=== PATIENT | female | born 1975 ===

== ENCOUNTER 2018-06-17 16:42 | Emergency (ER) | payer SELFPAY ==
[2018-06-17 16:48] VITALS: TEMP 98.3
[2018-06-17] MEDS ORDERED: Lactated Ringer's 1,000 ML IV STA (17:33)
[2018-06-17] MEDS ORDERED: Dextrose 5%/Lactated Ringer's 1,000 ML IV ONE (17:45)
--- NOTE | 2018-06-17 18:15 | ED PDOC ---
HPI: Psych/Substance Abuse Time Seen by Provider: 06/17/18 16:50 Chief Complaint (Nursing): Psychiatric Evaluation Chief Complaint (Provider): Psychiatric Evaluation History Per: Patient History/Exam Limitations: no limitations Onset/Duration Of Symptoms: Days (x1 week) Additional Complaint(s): 42 year old female with no significant past medical history presents to the ED for psychiatric evaluation. Patient reports she has been suicidal since she found out she is a week ago. She says she was surprised by . Patient has nausea, intractable vomiting, and epigastric pain. She is vomiting stomach acid, but denies any bilious or bloody vomiting. Patient has severe fatigue secondary to being malnourished. She is also depressed and sad but has no suicide plan. Patient was seen at the clinic earlier today and sent here for further evaluation. Her last period was April 13, she thought she was going through menopause before she found out she is . PMD: [facility] Past Medical History Reviewed: Historical Data Vital Signs: Last Vital Signs Temp 98.3 F 06/17/18 16:45 Pulse 57 L 06/17/18 16:45 Resp 18 06/17/18 16:45 BP 134/53 L 06/17/18 16:45 Pulse Ox 100 06/17/18 16:45 - Medical History PMH: No Chronic Diseases - Surgical History Surgical History: Appendectomy - Family History Family History: States: No Known Family Hx - Social History Current smoker - smoking cessation education provided: Yes (rarely, but hasn't since she found out she is ) Ex-Smoker (has not smoked in the last 12 months): No Alcohol: None Drugs: Cannabis (she has not used cannabis since she found out she is ) - Home Medications Home Medications: Ambulatory Orders Medication Instructions Recorded Famotidine [Pepcid] 40 mg PO DAILY PRN #30 tab 06/17/18 Metoclopramide [Reglan] 10 mg PO Q6 PRN #20 tab 06/17/18 - Allergies Allergies/Adverse Reactions: Allergies Allergy/AdvReac Type Severity Reaction Status Date / Time No Known Allergies Allergy Verified 06/17/18 16:44 Review of Systems ROS Statement: Except As Marked, All Systems Reviewed And Found Negative Psych: Positive for: Depression, Suicidal ideation Physical Exam - Reviewed Nursing Documentation Reviewed: Yes Vital Signs Reviewed: Yes - Physical Exam Appears: Positive for: No Acute Distress (tired and tearful), In Acute Distress (acute psychiatric distress) Head Exam: Positive for: ATRAUMATIC, NORMOCEPHALIC Skin: Positive for: Warm, Dry Eye Exam: Positive for: EOMI, PERRL ENT: Negative for: Pharyngeal Erythema, Tonsillar Exudate Neck: Positive for: Painless ROM, Supple Cardiovascular/Chest: Positive for: Regular Rate, Rhythm. Negative for: Murmur Respiratory: Positive for: Normal Breath Sounds. Negative for: Wheezing Gastrointestinal/Abdominal: Positive for: Soft. Negative for: Mass, Guarding, Rebound Back: Positive for: Normal Inspection. Negative for: Decreased ROM Extremity: Positive for: Normal ROM. Negative for: Deformity Lymphatic: Negative for: Adenopathy Neurologic/Psych: Positive for: Alert, Oriented (x3), Mood/Affect (depressed). Negative for: Motor/Sensory Deficits - Laboratory Results Result Diagrams: 06/17/18 18:37 06/17/18 18:37 - ECG O2 Sat by Pulse Oximetry: 100 (RA) Pulse Ox Interpretation: Normal Medical Decision Making Medical Decision Making: Time: 17:33 Initial Impression: vomiting in and adjustment disorder Initial Impression: --Beta-HCG --CMP --Magnesium --Phosphorous --Crisis evaluation --U preg --U dip --CBC with differentials --Dextrose --Lactated ringers --Pepcid 20 mp IVP --Zofran 4 mg IVP Ketones in Udip Blood work unremarkable. Evaluated by transplant worker Farhana dennison d/w Dr Mendez and pt stable for dc by psych standpoint. 8p Pt tolerating PO meal in ER. DW pt findings and plan of care. Need to start care. Info for women's center given. Scribe Attestation: Documented by Michelle Pina, acting as a scribe for Viviana Batista MD Provider Scribe Attestation: All medical record entries made by the Scribe were at my direction and personally dictated by me. I have reviewed the chart and agree that the record accurately reflects my personal performance of the history, physical exam, medical decision making, and the department course for this patient. I have also personally directed, reviewed, and agree with the discharge instructions and disposition. Disposition - Clinical Impression Clinical Impression: Vomiting during , Adjustment disorder Counseled Patient/Family Regarding: Studies Performed, Diagnosis, Need For Followup, Rx Given - Disposition Referrals: [facility] [Outside] - 06/20/18 Disposition: Routine/Home Disposition Time: 20:30 Condition: IMPROVED Prescriptions: Famotidine [Pepcid] 40 mg PO DAILY PRN #30 tab PRN Reason: reflux Metoclopramide [Reglan] 10 mg PO Q6 PRN #20 tab PRN Reason: Nausea/Vomiting Instructions: Adjustment Disorder, Nausea and Vomiting of (DC) Forms: [facility] ED School/Work Excuse Print Language: NORWEGIAN
[2018-06-17 19:04] LABS: BASO % 0.4 % (0.0-2.0); EOS # 0.1 K/uL (0.0-0.7); EOS % 1.2 % (0.0-4.0); HEMOGLOBIN 11.8 g/dL (12.0-16.0); LYMPH % 28.6 % (20.0-40.0); MEAN CELL VOLUME 87.2 fl (81.0-99.0); MEAN CORPUSCULAR HEMOGLOBIN 28.4 pg (27.0-31.0); MEAN CORPUSCULAR HGB CONC 32.6 g/dL (33.0-37.0); MEAN PLATELET VOLUME 7.9 fl (7.2-11.7); MONO # 0.4 K/uL (0.0-0.8); MONO % 6.1 % (0.0-10.0); NEUT # 4.4 K/uL (1.8-7.0); NEUT % 63.7 % (50.0-75.0); RBC 4.15 Mil/uL (3.80-5.20); RED CELL DISTRIBUTION WIDTH 13.2 % (11.5-14.5); WHITE BLOOD COUNT 6.9 K/uL (4.8-10.8)
[2018-06-17 19:15] LABS: ALB/GLOB RATIO 1.4 (1.0-2.1); ALBUMIN 4.3 g/dL (3.5-5.0); ALT/SGPT 27 U/L (9-52); AST/SGOT 23 U/L (14-36); BLOOD UREA NITROGEN 9 mg/dl (7-17); CALCIUM 9.4 mg/dL (8.4-10.2); GFR NON-AFRICAN AMERICAN > 60
[2018-06-17 19:55] VITALS: RESP 16
[2018-06-17 21:37] VITALS: BP 127/77; PULSE 76
[2018-06-17 23:21] VITALS: O2SAT 100
== END 2018-06-17 21:37 | disposition home or self-care (01) ==
LOC: H.ER 16:42
DX: O21.9 Vomiting of pregnancy, unspecified (principal); F43.20 Adjustment disorder, unspecified
CPT/HCPCS: 80053; 81025; 83735; 84100; 84702; 85025; 96374; 96375; 99284; J2405; J7120

== ENCOUNTER 2018-06-21 12:15 | Emergency (ER) | payer OTHER ==
[2018-06-21 12:23] VITALS: TEMP 98.5; O2SAT 99
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
[2018-06-21] MEDS ORDERED: Oxycodone/Acetaminophen 5/325 mg Tab PO STA (13:10)
[2018-06-21 13:35] LABS: BASO % 0.6 % (0.0-2.0); EOS # 0.1 K/uL (0.0-0.7); HEMOGLOBIN 12.1 g/dL (12.0-16.0); LYMPH # 1.7 K/uL (1.0-4.3); LYMPH % 28.1 % (20.0-40.0); MEAN CELL VOLUME 86.5 fl (81.0-99.0); MEAN CORPUSCULAR HEMOGLOBIN 29.6 pg (27.0-31.0); MEAN CORPUSCULAR HGB CONC 34.2 g/dL (33.0-37.0); MEAN PLATELET VOLUME 7.6 fl (7.2-11.7); MONO # 0.3 K/uL (0.0-0.8); MONO % 5.8 % (0.0-10.0); NEUT # 3.8 K/uL (1.8-7.0); NEUT % 63.5 % (50.0-75.0); RBC 4.11 Mil/uL (3.80-5.20); RED CELL DISTRIBUTION WIDTH 13.1 % (11.5-14.5); WHITE BLOOD COUNT 5.9 K/uL (4.8-10.8)
[2018-06-21 13:46] LABS: ALB/GLOB RATIO 1.5 (1.0-2.1); ALBUMIN 4.3 g/dL (3.5-5.0); ALT/SGPT 22 U/L (9-52); AST/SGOT 22 U/L (14-36); BLOOD UREA NITROGEN 8 mg/dl (7-17); CALCIUM 9.5 mg/dL (8.4-10.2); GFR NON-AFRICAN AMERICAN > 60
--- NOTE | 2018-06-21 15:35 | US ---
Date of service: 06/21/2018 HISTORY: 8 weeks, severe lower abd pain ; last menstrual period is unknown. COMPARISON: None available. TECHNIQUE: Transabdominal and transvaginal obstetric ultrasound was performed with longitudinal and transverse images submitted for interpretation. FINDINGS: UTERUS: Measures 11.4 x 8.5 x 6.1 cm. Normal in size and appearance, anteverted. No fibroid or other mass lesion seen. ENDOMETRIUM: A gestational sac is identified within the endometrial cavity with pole and yolk sac identified within the sac. The mean sac diameter measures 4.8 cm. Yolk sac measures 0.7 Mean crown-rump length measurement of the pole is 1.7 cm corresponding to average ultrasonic age of 8 weeks 0 days. The pattern suggestive of demise. The decidual reaction appears mildly inhomogeneous in echotexture but without definitive hemorrhage related at this time. CERVIX: 4.3 cm length with closed internal os. No suspicious cyst or solid lesion related. RIGHT OVARY: The right ovary appears unremarkable and no suspicious cyst or solid mass is seen in the right adnexal compartment at this time. LEFT OVARY: Measures 1.8 x 1.9 x 1.2 cm. No solid mass. Normal flow. FREE FLUID: No significant free fluid noted. OTHER FINDINGS: None. IMPRESSION: A single intrauterine gestation is identified with ultrasonic age of 8 weeks 0 days. No cardiac activity is detectable in the findings center suggestive of demise. No definitive decidual hemorrhage appreciated this time. Further clinical correlation is advised as well as potential sonographic follow-up. Right ovary is not identified though no suspicious right adnexal findings are appreciated nevertheless. Left ovary appears nonfocal. No sonographic evidence to suggest ectopic gestation.
[2018-06-21 17:08] VITALS: BP 148/82; PULSE 67; RESP 18
== END 2018-06-21 17:05 | disposition home or self-care (01) ==
LOC: H.ER 12:15
DX: O03.9 Complete or unspecified spontaneous abortion without complication (principal)